=== PATIENT | male | born 1990 ===

== ENCOUNTER 2024-12-31 18:57 | Emergency (ER) | payer BC ==
[2024-12-31] MEDS: Lidocaine 1% 10 ML MDV INJECT ONE (20:31)
== END 2024-12-31 22:41 | disposition home or self-care (01) ==
LOC: MW.ED 18:57
DX: S61.214A Laceration without foreign body of right ring finger without damage to nail, initial encounter (principal); W26.8XXA Contact with other sharp object(s), not elsewhere classified, initial encounter; Y93.89 Activity, other specified
CPT/HCPCS: 12001; 73120; 99283; J2003; 12041